=== PATIENT | male | born 1980 | race Caucasian/White ===

== ENCOUNTER 2019-07-09 21:54 | Inpatient (IN) | payer SELFPAY ==
[2019-07-09 22:02] VITALS: BP 139/92; PULSE 76; RESP 14; TEMP 36.7; O2SAT 96; BMI 24.3
--- NOTE | 2019-07-09 22:31 | PC.NURSE ---
Physician at bedside talking to patient.
--- NOTE | 2019-07-09 22:36 | PC.NURSE ---
pt. states im tired of every thing and I just want to end it. , he states he lost his girl friend, his child and his job. so he is just tired of every thing and I just want to end it . when asked if he wanted to hurt anyone els, he states yes. I asked him who, he states no one you know here and he would not tell me how he would do this. this information was told to the
--- NOTE | 2019-07-09 22:40 | ED_ITS ---
Documented by User: MARK Cunningham 07/10/19 00:04 HPI - Psych General: Chief Complaint: Psychiatric Symptoms Stated Complaint: si Time Seen by Provider: 07/09/19 22:23 Source: patient Mode of arrival: ambulatory Limitations: no limitations History of Present Illness: HPI Narrative: Patient comes in today for complaints of not being able to deal with his issues anymore. Patient states that he feels at 1 and an does not want to harm self due to a child but he does not know what else to do. Patient reports losing everything and has become very distraught. States he does not have anything to live for. Does not report a specific plan nor wants to talk about the plan. Associated symptoms: Reports suicidal ideation Review of Systems General: Reports: 10 or more systems reviewed and unremarkable except in HPI and below Psych: Reports: suicidal ideation PFS ED PFSH: Social History Smoking and tobacco status: never smoked Physical Exam Const: COMMON NORMALS: no apparent distress and oriented x3 GENERAL APPEARANCE: cooperative and well kempt HENMT: COMMON NORMALS: normocephalic, TM's normal bilaterally and external nose normal HEAD & SCALP: normal to inspection and normocephalic NOSE: external nose normal TYMPANIC MEMBRANE: TM's normal bilaterally MOUTH: oral and palatal mucosa normal THROAT: posterior oropharynx normal Eye: GENERAL EYE: normal appearance of both eyes Neck/C-Spine: COMMON NORMALS: full ROM Lymph: LYMPHATIC: no lymphadenopathy noted Chest: COMMONS NORMALS: inspection of chest normal Resp: COMMON NORMALS: normal respiratory effort EFFORT & INSPECTION: Yes able to speak in complete sentences Cardio: COMMON NORMALS: regular rate and regular rhythm RATE: regular rate RHYTHM: regular rhythm GI: COMMON NORMALS: non-tender : COMMON NORMALS: Yes no CVA tenderness BLADDER/KIDNEY EXAM: Yes no CVA tenderness Back/Pelvis: COMMON NORMALS: no CVA tenderness and thoracic and lumbar spine normal to inspection Extremity: COMMON NORMALS: normal to inspection Neuro: COMMON NORMALS: oriented x3 and moves all extremities Psych: COMMON NORMALS: speech normal APPEARANCE: Yes well kempt ATTITUDE: Yes aggressive ACTIVITY/MOTOR BEHAVIOR: Yes fidgeting and Yes avoids eye contact SPEECH: Yes normal speech MOOD & AFFECT: Yes depressed mood and Yes hostile affect THOUGHT PROCESS: circumstantial THOUGHT CONTENT: Yes suicidality INSIGHT: fair JUDGEMENT: fair Skin: COMMON NORMALS: no rashes or lesions noted GENERAL SKIN EXAM: no rashes or lesions noted MDM - Psych MDM Narrative: Medical decision making narrative: Patient comes in today for complaints of suicidal thoughts. Patient has had last situational changes over the last 6 months he states and feels that he has lost everything and does not have reason to live. Exam notes no significant abnormality. Patient denies any drug use. Vital signs are normal. Laboratory values indicated no drug use or alcohol or any abdomen abnormalities. Differential diagnosis includes but not limited to adjustment disorder, major depressive disorder, suicidal ideation. Reviewed the exam with patient with recommendations for admission to stress unit. Patient agreed to admission. Dr. Edwards was consulted and agreed to admit patient to stress unit for suicidal ideation. Patient needs admission for safety from self-harm and injury. Patient risk is fair. Lab Data: Labs: Lab Results 07/09/19 07/09/19 07/09/19 Range/Units 22:17 22:45 22:45 WBC 9.1 (4.0-10.0) 10^3/ uL RBC 5.51 H (4.1-5.3) 10^6/u L Hgb 17.7 H (11.7-16.6) g/dL Hct 51.6 (42.0-52.0) % MCV 93.6 (80-94) fL MCH 32.1 (28.0-34.0) pg MCHC 34.3 (30.0-36.0) g/dL RDW 11.9 L (12.1-15.1) % Plt Count 344 (130-400) 10^3/c mm MPV 9.7 (7.4-10.4) fL Neut % (Auto) 59.6 % Lymph % (Auto) 32.1 % [place] % (Auto) 6.7 % Eos % (Auto) 0.9 % Baso % (Auto) 0.5 % Neut # (Auto) 5.4 (1.8-7.7) 10^3/u L Lymph # (Auto) 2.9 (0.8-4.8) 10^3/u L [place] # (Auto) 0.6 (0.2-0.9) 10^3/u L Eos # (Auto) 0.1 (0.0-0.8) 10^3/u L Baso # (Auto) 0.1 (0.0-0.1) 10^3/u L Nucleated RBC % (a uto) 0 % Nucleated RBCs # 0.0 /100WBC Sodium 142 (136-145) mmol/L Potassium 3.5 (3.5-5.1) mmol/L Chloride 101 (98-107) mmol/L Carbon Dioxide 29 (22-29) mmol/L Anion Gap 15.5 (5-19) BUN 9 (6-20) mg/dL Creatinine 1.2 (0.7-1.2) mg/dL GFR Calculation 68.1 L (90-130) mL/min Glucose 105 (65-115) mg/dL Calculated Osmolal ity 290 (285-295) mOsm/k g Calcium 10.7 H (8.5-10.5) mg/dL Total Bilirubin 0.7 (0.15-1.2) mg/dL AST 20 (0-40) U/L ALT 17 (0-41) U/L Alkaline Phosphata se 65 (40-130) IU/L Total Protein 8.8 H (6.6-8.7) g/dL Albumin 5.1 (3.5-5.2) g/dL Globulin 3.7 (1.3-4.6) g/dL Salicylates 0.5 L (3-10) mg/dL Urine Opiates Scre en Negative (Negative) ng/mL Acetaminophen < 5.0 L (10-30) ug/mL Ur Barbiturates Sc reen Negative (Negative) ng/mL Ur Phencyclidine S crn Negative (Negative) ng/mL Ur Amphetamines Sc reen Negative (Negative) ng/mL U Benzodiazepines Scrn Negative (Negative) ng/mL Urine Cocaine Scre en Negative (Negative) ng/mL U Marijuana (THC) Screen Negative (Negative) ng/mL Ethyl Alcohol < 10 (0-10) mg/dL Discharge Plan Discharge Patient Disposition: Admitted As Inpatient Admit Provider: Girma Edwards Clinical Impression: Suicidal ideation Condition: Stable Discharge Date/Time: 07/10/19 00:45 Sign Out Sign Out Data: Patient Sign Out occurred on 07/09/19 at 23:52. Patient's care was discussed, and care was transferred from Raul aMi to Caroline Tucker. Sign Out Comment: patient admitted, needs your note for seeing patient. 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 I read his assessment and plan. Please will be admitted to the NPU. Lab Data: Labs: Lab Results 07/09/19 07/09/19 07/09/19 Range/Units 22:17 22:45 22:45 WBC 9.1 (4.0-10.0) 10^3/ uL RBC 5.51 H (4.1-5.3) 10^6/u L Hgb 17.7 H (11.7-16.6) g/dL Hct 51.6 (42.0-52.0) % MCV 93.6 (80-94) fL MCH 32.1 (28.0-34.0) pg MCHC 34.3 (30.0-36.0) g/dL RDW 11.9 L (12.1-15.1) % Plt Count 344 (130-400) 10^3/c mm MPV 9.7 (7.4-10.4) fL Neut % (Auto) 59.6 % Lymph % (Auto) 32.1 % [place] % (Auto) 6.7 % Eos % (Auto) 0.9 % Baso % (Auto) 0.5 % Neut # (Auto) 5.4 (1.8-7.7) 10^3/u L Lymph # (Auto) 2.9 (0.8-4.8) 10^3/u L [place] # (Auto) 0.6 (0.2-0.9) 10^3/u L Eos # (Auto) 0.1 (0.0-0.8) 10^3/u L Baso # (Auto) 0.1 (0.0-0.1) 10^3/u L Nucleated RBC % (a uto) 0 % Nucleated RBCs # 0.0 /100WBC Sodium 142 (136-145) mmol/L Potassium 3.5 (3.5-5.1) mmol/L Chloride 101 (98-107) mmol/L Carbon Dioxide 29 (22-29) mmol/L Anion Gap 15.5 (5-19) BUN 9 (6-20) mg/dL Creatinine 1.2 (0.7-1.2) mg/dL GFR Calculation 68.1 L (90-130) mL/min Glucose 105 (65-115) mg/dL Calculated Osmolal ity 290 (285-295) mOsm/k g Calcium 10.7 H (8.5-10.5) mg/dL Total Bilirubin 0.7 (0.15-1.2) mg/dL AST 20 (0-40) U/L ALT 17 (0-41) U/L Alkaline Phosphata se 65 (40-130) IU/L Total Protein 8.8 H (6.6-8.7) g/dL Albumin 5.1 (3.5-5.2) g/dL Globulin 3.7 (1.3-4.6) g/dL Salicylates 0.5 L (3-10) mg/dL Urine Opiates Scre en Negative (Negative) ng/mL Acetaminophen < 5.0 L (10-30) ug/mL Ur Barbiturates Sc reen Negative (Negative) ng/mL Ur Phencyclidine S crn Negative (Negative) ng/mL Ur Amphetamines Sc reen Negative (Negative) ng/mL U Benzodiazepines Scrn Negative (Negative) ng/mL Urine Cocaine Scre en Negative (Negative) ng/mL U Marijuana (THC) Screen Negative (Negative) ng/mL Ethyl Alcohol < 10 (0-10) mg/dL Discharge Plan Discharge Patient Disposition: Admitted As Inpatient Admit Provider: Girma Edwards Clinical Impression: Suicidal ideation Condition: Stable Discharge Date/Time: 07/10/19 00:45 Sign Out Sign Out Data: Patient Sign Out occurred on 07/09/19 at 23:52. Patient's care was discussed, and care was transferred from Raul Mai to Caroline Tucker. Sign Out Comment: patient admitted, needs your note for seeing patient. wjw Last updated by Raul Mai, MARK at 07/09/19 23:50 Coding Level of Care Code ED Bone Process Operator for Chg Fwd Exam Comprehensive
[2019-07-09 22:58] LABS: Basophils # 0.1 10^3/uL (0.0-0.1); Basophils % 0.5 %; Eosinophils # 0.1 10^3/uL (0.0-0.8); Eosinophils % 0.9 %; Hematocrit 51.6 % (42.0-52.0); Hemoglobin 17.7 g/dL (11.7-16.6); Lymphocytes # 2.9 10^3/uL (0.8-4.8); Lymphocytes % 32.1 %; Mean Corpuscular HGB Conc 34.3 g/dL (30.0-36.0); Mean Corpuscular Hemoglobin 32.1 pg (28.0-34.0); Mean Corpuscular Volume 93.6 fL (80-94); Mean Platelet Volume 9.7 fL (7.4-10.4); Monocytes # 0.6 10^3/uL (0.2-0.9); Monocytes % 6.7 %; Neutrophils # 5.4 10^3/uL (1.8-7.7); Neutrophils % 59.6 %; Nucleated Red Blood Cells % 0 %; Platelet Count 344 10^3/cmm (130-400); Red Blood Count 5.51 10^6/uL (4.1-5.3); Red Cell Distribution Width 11.9 % (12.1-15.1); White Blood Count 9.1 10^3/uL (4.0-10.0)
[2019-07-09 23:10] LABS: Amphetamines Screen Urine Negative (Negative); Barbiturates Screen Urine Negative (Negative); Benzodiazepines Screen Urine Negative (Negative); Cocaine Screen Urine Negative (Negative); Opiate Screen Urine Negative (Negative); PCP Screen Urine Negative (Negative); THC Screen Urine Negative (Negative)
[2019-07-09 23:13] LABS: Alanine Aminotransferase 17 U/L (0-41); Albumin Level 5.1 g/dL (3.5-5.2); Alkaline Phosphatase 65 IU/L (40-130); Anion Gap 15.5 (5-19); Aspartate Amino Transferase 20 U/L (0-40); Blood Urea Nitrogen 9 mg/dL (6-20); Calcium 10.7 mg/dL (8.5-10.5); Carbon Dioxide 29 mmol/L (22-29); Chloride 101 mmol/L (98-107); Creatinine Clr Calc Pharmacy 88.9858; Globulin 3.7 g/dL (1.3-4.6); Glomerular Filtration Rate 68.1 mL/min (90-130); Glucose 105 mg/dL (65-115); Osmolality Calculated 290 mOsm/kg (285-295); Potassium 3.5 mmol/L (3.5-5.1); Salicylate 0.5 mg/dL (3-10); Sodium 142 mmol/L (136-145); Total Bilirubin 0.7 mg/dL (0.15-1.2); Total Protein 8.8 g/dL (6.6-8.7)
[2019-07-09 23:26] LABS: Acetaminophen < 5.0 ug/mL (10-30); Alcohol Level < 10 mg/dL (0-10)
[2019-07-10 00:36] VITALS: BP 153/96; PULSE 69; RESP 19; TEMP 36.6; O2SAT 97
[2019-07-10 01:08] VITALS: BP 134/81; PULSE 68; RESP 18; TEMP 36.8; O2SAT 98
[2019-07-10 06:00] VITALS: BP 114/70; PULSE 68; RESP 16; TEMP 36.6; O2SAT 96
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
[2019-07-10] MEDS: hyDROXYzine 25 mg Capsule 50 MG PO (13:01)
--- NOTE | 2019-07-10 13:01 | PC.NURSE ---
PRN VISTARIL VISTARIL 50MG PO PER PATIENT C/O AGITATION/ANXIETY. WILL CONTINUE TO MONITOR FOR MEDICATION EFFECTIVENESS.
[2019-07-10 14:00] VITALS: BP 119/65; PULSE 65; RESP 18; TEMP 37; O2SAT 96
--- NOTE | 2019-07-10 14:00 | PC.NURSE ---
PRN VISTARIL FOLLOW UP MEDICATION EFFECTIVE. PATIENT IS SITTING IN THE DAYROOM TALKING WITH OTHER PATIENTS.
[2019-07-10] MEDS: nicotine 2 mg Gum BUCCAL (16:33)
[2019-07-10] MEDS: OLANZapine ODT 5 MG TABLET PO (20:33)
--- NOTE | 2019-07-10 20:33 | PC.NURSE ---
ZYPREXA ZYDIS PT CAME TO NURSES STATION REQUESTING SOMETHING TO HELP HIM STOP BEING PISSED OFF . ADMINISTERED ZYPREXA ZYDIS 5MG SUBLINGUAL. WILL MONITOR FOR MEDICATION EFFECTIVENESS.
[2019-07-10 22:00] VITALS: BP 110/72; PULSE 70; RESP 18; TEMP 36.9; O2SAT 97
[2019-07-11 06:00] VITALS: BP 106/69; PULSE 62; RESP 16; TEMP 36.6; O2SAT 98
[2019-07-11] MEDS: lamoTRIgine 25 mg Tablet PO (08:12)
[2019-07-11] MEDS: ALPRAZolam 0.25 mg Tablet PO (09:05)
[2019-07-11] MEDS: BuSPIRONE 10 mg Tablet PO ×3 (09:05→20:12)
[2019-07-11] MEDS: nicotine 2 mg Gum BUCCAL ×2 (13:40→17:51)
[2019-07-11 14:00] VITALS: BP 107/70; PULSE 94; RESP 18; TEMP 36.7; O2SAT 97
[2019-07-11] MEDS: albuterol 8 gm MDI 2 PUFF INHALATION (14:31)
[2019-07-11 14:32] VITALS: PULSE 62; RESP 16; O2SAT 98
--- NOTE | 2019-07-11 15:34 | P.PN_ITS ---
Subjective NPU Subjective: Interval history: Maik presents today reporting that he understands that even though he does not like the idea of medication that he needs to start something. He was attempting again to get Xanax restarted. However we can find no documentation at any pharmacy of a history of active Xanax prescriptions. There was some history of active Klonopin prescription. However we discussed the risks benefits and alternatives of restarting BuSpar and adding Prozac and Lamictal and he understood and agreed to proceed as is documented in this note. Mental Status Exam MSE Comments: Well-nourished well-developed white/ male with adequate dress grooming and eye contact. No abnormal movements except for resolving psychomotor retardation. Cooperative with exam in no acute distress. Speech was decreased rate and volume. Mood described as depressed and angry, affect congruent but improving. Thought process organized. Thought content: Patient denies any suicidal ideation but did endorse resolving homicidal ideation, there were no delusions reported or noted, he denied any auditory visual hallucinations. Attention and concentration appeared intact and memory seemed reliable but none were formally tested. He is alert and oriented x3. Insight and judgment are fair. Impulse control is limited. Vitals/I&O/Wt Last Vital Signs Temp 98.2 F 07/11/19 22:00 Pulse 70 07/11/19 22:00 Resp 18 07/11/19 22:00 BP 117/79 07/11/19 22:00 Pulse Ox 99 07/11/19 22:00 Data NPU : 07/09/19 22:45 07/09/19 22:45 A&P Additional A&P Information (1) Homicidal ideation: This is a 38-year-old white/ male with limited history of mental health treatment who presents with a history of PTSD, and current partner relational problems with significant anger depression and anxiety but unclear if he is willing to restart medication now. 1. Continue current medication. We will initiate buspar 10 mg po tid, prozac 20 mg po qam and lamictal 25 mg po qam for a scheduled titration. 2. Encourage individual, group and milieu therapy. 3. Continue to 15-minute checks for safety. 4. Ensure appropriate follow-up at discharge. (2) Partner relational problem: (3) Depression: (4) Post traumatic stress disorder (PTSD): (5) Cluster B personality disorder: Involuntary Hold Information 96 Hour Hold: 96 Hour Involuntary Admission: Yes 96 Hour Hold Ending Date: 07/15/19 96 Hour Hold Ending Time: 21:54 Attestations NPU Medical Necessity Statement*: Inpatient hospitalization is medically necessary and the clinically appropriate intervention at this time. We will encourage the initiation of medication and make adjustments as indicated. Likely length of stay 2-4 days. 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
[2019-07-11 22:00] VITALS: BP 117/79; PULSE 70; RESP 18; TEMP 36.8; O2SAT 99
[2019-07-12 06:00] VITALS: BP 93/59; PULSE 58; RESP 17; TEMP 36.9; O2SAT 96
[2019-07-12] MEDS: BuSPIRONE 10 mg Tablet PO ×3 (08:37→20:55)
[2019-07-12] MEDS: lamoTRIgine 25 mg Tablet PO (08:37)
[2019-07-12] MEDS: nicotine 2 mg Gum BUCCAL ×2 (12:12→16:12)
--- NOTE | 2019-07-12 13:23 | PM.NPN ---
Subjective NPU Subjective: Interval history: Maik presents today reporting that he understands what he needs to do and what gets in the way of his success. He endorses that he is doing okay with the medication and he feels less angry. We discussed that there would be a new provider who would have a new fresh set eyes to consider his situation. He reports that he is eating and sleeping better. Mental Status Exam MSE Comments: Well-nourished well-developed white/ male with adequate dress grooming and eye contact. No abnormal movements except for resolving psychomotor retardation. Cooperative with exam in no acute distress. Speech was decreased rate and volume. Mood described as depressed and angry, affect congruent but improving. Thought process organized. Thought content: Patient denies any suicidal ideation but did endorse resolving homicidal ideation, there were no delusions reported or noted, he denied any auditory visual hallucinations. Attention and concentration appeared intact and memory seemed reliable but none were formally tested. He is alert and oriented x3. Insight and judgment are fair. Impulse control is limited. Vitals/I&O/Wt Last Vital Signs Temp 97.2 F L 07/12/19 22:00 Pulse 74 07/12/19 23:42 Resp 16 07/12/19 23:42 BP 109/56 07/12/19 22:00 Pulse Ox 97 07/12/19 23:42 Weight last 48 hrs Weight 79.379 kg Data NPU : 07/09/19 22:45 07/09/19 22:45 A&P Additional A&P Information (1) Homicidal ideation: This is a 38-year-old white/ male with limited history of mental health treatment who presents with a history of PTSD, and current partner relational problems with significant anger depression and anxiety but unclear if he is willing to restart medication now. 1. Continue current medication. 2. Encourage individual, group and milieu therapy. 3. Continue to 15-minute checks for safety. 4. Ensure appropriate follow-up at discharge. (2) Partner relational problem: (3) Depression: (4) Post traumatic stress disorder (PTSD): (5) Cluster B personality disorder: Involuntary Hold Information 96 Hour Hold: 96 Hour Involuntary Admission: Yes 96 Hour Hold Ending Date: 07/15/19 96 Hour Hold Ending Time: 21:54 Attestations NPU Medical Necessity Statement*: Inpatient hospitalization is medically necessary and the clinically appropriate intervention at this time. We will encourage the initiation of medication and make adjustments as indicated. Likely length of stay 1-3 days.Consider discharge next 48 hours. Coding Level of Care Code Acute Sales And Service Representative for Ella Bowen
[2019-07-12 14:00] VITALS: BP 116/67; PULSE 71; RESP 18
[2019-07-12 14:53] VITALS: PULSE 70; RESP 16; O2SAT 99
[2019-07-12] MEDS: albuterol 8 gm MDI 2 PUFF INHALATION ×2 (14:53→23:41)
--- NOTE | 2019-07-12 21:48 | PC.NURSE ---
pt given scheduled buspar and PRN nicoette gum this eloise.
[2019-07-12 22:00] VITALS: BP 109/56; PULSE 71; RESP 16; TEMP 36.2; O2SAT 97
[2019-07-12 23:42] VITALS: PULSE 74; RESP 16; O2SAT 97
[2019-07-13 06:00] VITALS: BP 139/83; PULSE 69; RESP 17; TEMP 36.4; O2SAT 97
[2019-07-13] MEDS: lamoTRIgine 25 mg Tablet PO (08:49)
[2019-07-13] MEDS: BuSPIRONE 10 mg Tablet PO ×2 (08:49→14:24)
[2019-07-13] MEDS: nicotine 2 mg Gum BUCCAL ×3 (08:49→19:32)
[2019-07-13 11:30] VITALS: PULSE 72; RESP 18; O2SAT 98
[2019-07-13 14:00] VITALS: BP 132/86; PULSE 76; RESP 20; TEMP 36.7; O2SAT 98
--- NOTE | 2019-07-13 15:25 | PM.NPN ---
Subjective NPU Subjective: Interval history: Maik presens his situation and he truly is in several sitautions that are incredibly irritating and out of his control. However, he has good hedonic capacity, sleeps well, and has had o suicidal or homicidal ideation. Mental Status Exam MSE Comments: Well-nourished well-developed white/ male with adequate dress grooming and eye contact. No abnormal movements except for resolving psychomotor retardation. Cooperative with exam in no acute distress. Speech was decreased rate and volume. Mood described as depressed and angry, affect congruent but improving. Thought process organized. Thought content: Patient denies any suicidal ideationor homicidal ideation, there were no delusions reported or noted, he denied any auditory visual hallucinations. Attention and concentration appeared intact and memory seemed reliable but none were formally tested. He is alert and oriented x3. Insight and judgment are fair. Impulse control is limited. Cognition: Patient Appearance: Appropriate Level of Consciousness: Awake, Alert and Follows Commands Patient Cognition Impaired: No Ability to Follow Directions: Good Patient Orientation (long list): Person and Place Comprehension Ability: No Impairment Hallucination Type: None Delusion Description: Not Present Thought Process: Flight of Ideas Affect: Affect Description: Appropriate and Calm Behavior: Patient Behavior: Appropriate and Cooperative Speech Pattern: Appropriate and Clear Vitals/I&O/Wt Last Vital Signs Temp 98.0 F 07/13/19 14:00 Pulse 76 07/13/19 14:00 Resp 20 H 07/13/19 14:00 BP 132/86 07/13/19 14:00 Pulse Ox 98 07/13/19 14:00 Weight last 48 hrs Weight 79.379 kg Data NPU : 07/09/19 22:45 07/09/19 22:45 A&P Assessment and plan (1) Homicidal ideation: This is a 38-year-old white/ male with limited history of mental health treatment who presents with a history of PTSD, and current partner relational problems with significant anger depression and anxiety but unclear if he is willing to restart medication now. 1. This situation is complicated by expected barriers in follow up care. He acknowledges that he needs to be seeing a therapist and has been thwarted in his efforts over the past months first due to administrative inefficiency and then Covid 19 limitations. He agreed to starting Celexa 20 mg daily supplemented with lorazepam 1 mg daily prn irritablility. . 2. Encourage individual, group and milieu therapy. 3. Continue to 15-minute checks for safety. 4. Ensure appropriate follow-up at discharge. Status: Acute (2) Partner relational problem: Status: Acute (3) Depression: Status: Acute (4) Post traumatic stress disorder (PTSD): Status: Acute (5) Cluster B personality disorder: Status: Acute Additional A&P Information (1) Homicidal ideation: This is a 38-year-old white/ male with limited history of mental health treatment who presents with a history of PTSD, and current partner relational problems with significant anger depression and anxiety but unclear if he is willing to restart medication now. 1. Continue current medication. 2. Encourage individual, group and milieu therapy. 3. Continue to 15-minute checks for safety. 4. Ensure appropriate follow-up at discharge. (2) Partner relational problem: (3) Depression: (4) Post traumatic stress disorder (PTSD): (5) Cluster B personality disorder: Involuntary Hold Information 96 Hour Hold: 96 Hour Involuntary Admission: Yes 96 Hour Hold Ending Date: 07/15/19 96 Hour Hold Ending Time: 21:54 Attestations NPU Medical Necessity Statement*: Patient will remain in the hospital another 2-3 nights for medication stabilization and assessment of efficacy and tolerance. Coding Level of Care Code Acute Distributed Generation Project Manager for Ella Bowen Diagnoses Homicidal ideation R45.850 Partner relational problem Z63.0 Depression F32.9 Post traumatic stress disorder (PTSD) F43.10 Cluster B personality disorder F60.89
[2019-07-13] MEDS: citalopram 20 mg Tablet PO (15:57)
[2019-07-13] MEDS: LORazepam 1 mg Tablet PO (15:57)
--- NOTE | 2019-07-13 20:57 | PC.NURSE ---
pt offered sleep med, pt refused.
[2019-07-13 22:00] VITALS: BP 120/73; PULSE 68; RESP 17; TEMP 36.9; O2SAT 97
[2019-07-13 23:30] VITALS: PULSE 80; RESP 18; O2SAT 98
[2019-07-13] MEDS: albuterol 8 gm MDI 2 PUFF INHALATION (23:31)
[2019-07-14 06:00] VITALS: BP 124/79; PULSE 59; RESP 17; O2SAT 97
--- NOTE | 2019-07-14 06:14 | PC.NURSE ---
Patient refused to allow me to take his Temp at 0600, Lyudmila Castro, NT
[2019-07-14] MEDS: citalopram 20 mg Tablet PO (08:57)
[2019-07-14] MEDS: lamoTRIgine 25 mg Tablet PO (08:57)
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
[2019-07-14 09:32] VITALS: BP 124/79; PULSE 59; RESP 17; O2SAT 97
== END 2019-07-14 10:28 | disposition home or self-care (01) | DRG 881 ==
LOC: ER 23:52 → NP 07-10 00:14
PROVIDERS: Emergency Medicine; Admitting Provider Psychiatry & Neurology Psychiatry; Emergency Provider Emergency Medicine; PCP Family Medicine; Visit Provider Psychiatry & Neurology Psychiatry
DX: F32.9 Major depressive disorder, single episode, unspecified (principal); F43.10 Post-traumatic stress disorder, unspecified; F17.220 Nicotine dependence, chewing tobacco, uncomplicated; Z63.0 Problems in relationship with spouse or partner; J45.909 Unspecified asthma, uncomplicated; F10.21 Alcohol dependence, in remission; R45.850 Homicidal ideations; F60.89 Other specific personality disorders
CPT/HCPCS: 12345; 80053; 80306; 80307; 85025; 94640; 99284; J3535